=== PATIENT | male | born 1955 | race Caucasian/White ===

== ENCOUNTER 2019-02-22 14:48 | Inpatient (IN) | payer MEDICAID, MEDICARE, OTHER ==
[~2019-02-22] VITALS: Ht 185.4 cm; Wt 83.0 kg
[~2019-02-22 14:48] MED LIST: AMLO-511 PO; GEMF600T89 PO; LISI-661 PO; METF-960 PO; OMEP20 PO
[2019-02-22 16:15] LABS: BASOPHILS % (AUTO) 0.8 % (0.0-2.0); EOSINOPHILS % (AUTO) 0.2 % (1.0-6.0); HEMATOCRIT 41.4 % (41-53); HEMOGLOBIN 14.2 g/dL (13.5-17.5); LYMPHOCYTES # (AUTO) 0.9 K/uL (1.0-4.8); LYMPHOCYTES % (AUTO) 19.5 % (22.0-44.0); MEAN CORPUSCULAR HEMOGLOBIN 33.4 pg (26.0-34.0); MEAN CORPUSCULAR HGB CONC 34.3 G/dL (31.0-37.0); MEAN CORPUSCULAR VOLUME 97 fL (80-100); MONOCYTES # (AUTO) 0.7 K/uL (0.1-1.0); MONOCYTES % (AUTO) 15.6 % (2.0-9.0); NEUTROPHILS % (AUTO) 63.9 % (40.0-70.0); RED BLOOD CELL COUNT(AUTO) 4.25 MIL/uL (4.50-5.90); RED CELL DISTRIBUTION WIDTH 15.1 % (11.5-14.5)
[2019-02-22] MEDS ORDERED: ONDANSETRON HCL 4 MG/2 ML VIAL IVP ONE ×2 (16:15→22:30)
[2019-02-22] MEDS ORDERED: SODIUM CHLORIDE 0.9% 1,000 ML IV ONE ×2 (16:15→20:30)
[2019-02-22] MEDS ORDERED: MORPHINE SULFATE 4 MG/ML SYRINGE IVP ONE ×3 (16:15→22:30)
[2019-02-22 16:44] LABS: ANION GAP 17 mmol/L (8-16); CALCIUM, TOTAL 9.1 mg/dL (8.8-10.5); CARBON DIOXIDE 28 mmol/L (22-29); CHLORIDE 88 mmol/L (98-107); CREATININE 1.11 mg/dL (0.60-1.30); GLOMERULAR FILTR. RATE CALC > 60 mL/min (>60); GLUCOSE,RANDOM 296 mg/dL (70-110); POTASSIUM 3.6 mmol/L (3.5-5.1); SODIUM SERUM 133 mmol/L (136-145); UREA NITROGEN, BLOOD 20 mg/dL (7-18)
[2019-02-22 16:50] LABS: ALANINE AMINOTRANSFERASE 161 U/L (12-78); ALBUMIN 4.4 g/dL (3.4-5.0); ALKALINE PHOSPHATASE 129 U/L (46-116); ASPARTATE AMINOTRANSFERASE 337 U/L (15-37); BILIRUBIN,TOTAL 1.3 mg/dL (0.1-1.0); LIPASE 1689 U/L (73-393); TOTAL PROTEIN, SERUM 8.5 g/dL (6.4-8.2)
[2019-02-22 16:59] LABS: GLUCOSE,POINT OF CARE 320 MG/DL (70-110)
[2019-02-22 17:07] LABS: PLATELET COUNT (AUTO) 91 K/uL (150-450)
[2019-02-22] MEDS ORDERED: GADOBUTROL 1 MMOL/ML 10 ML VIAL IVP ONE (18:59)
[2019-02-22] MEDS ORDERED: PB/HYOSCY/ATR/SCOP/LIDO/MAALOX 55 ML BOTTLE PO ONE (22:30)
[2019-02-22] MEDS ORDERED: LORazepam 2 MG/ML VIAL IVP ONE (22:45)
[2019-02-22] MEDS ORDERED: ALBUTEROL SULFATE 2.5 MG/0.5 ML NEB SOLUTION NEB PRN (23:00)
[2019-02-22] MEDS ORDERED: ZOLPIDEM TARTRATE 5 MG TABLET PO PRN (23:00)
[2019-02-22] MEDS ORDERED: MAGNESIUM HYDROXIDE SUSPENSION 30 ML UDCUP PO PRN (23:00)
[2019-02-22] MEDS ORDERED: DEXTROSE 50%-WATER 25 GM/50 ML SYRINGE IVP PRN (23:00)
[2019-02-22] MEDS ORDERED: BISACODYL 10 MG RECTAL RECTAL SUPPOSITORY PR PRN (23:00)
[2019-02-22] MEDS ORDERED: IPRATROPIUM BROMIDE 0.5 MG/2.5 ML NEB SOLUTION NEB PRN (23:00)
[2019-02-22] MEDS ORDERED: CloNIDine HCL 0.1 MG TABLET PO PRN (23:00)
[2019-02-22 23:35] LABS: GLUCOSE,POINT OF CARE 227 MG/DL (70-110)
[2019-02-22] MEDS ORDERED: METOCLOPRAMIDE HCL 5 MG/ML 2 ML VIAL IVP ONE (23:45)
[2019-02-23] VITALS (7 sets, daily range): BP systolic 130–170; BP diastolic 87–114
[2019-02-23] MEDS: MORPHINE SULFATE 2 MG/ML SYRINGE IVP PRN ×4 (02:36→17:46)
[2019-02-23] MEDS: OxyCODONE HCL/ACETAMINOPHEN 5-325 MG TABLET PO PRN ×3 (04:48→22:20)
[2019-02-23] MEDS ORDERED: DEXTROSE 5%-0.45% SODIUM CHL 1,000 ML IV SCH (05:30)
[2019-02-23] MEDS: INSULIN LISPRO 100 UNITS/ML SQ PRN ×4 (05:34→19:58)
[2019-02-23 05:40] LABS: GLUCOMETER DEV NAME(LOC) 5N.1; GLUCOSE,POINT OF CARE 237 MG/DL (70-110)
[2019-02-23] MEDS ORDERED: MAGNESIUM SULFATE 2 GM, MVI, ADULT NO.1 WITH VIT K 10 ML, THIAMINE HCL 100 MG, FOLIC AC... IV ONE ×5 (06:00)
[2019-02-23 06:17] LABS: BASOPHILS % (AUTO) 0.2 % (0.0-2.0); EOSINOPHILS % (AUTO) 0 % (1.0-6.0); HEMATOCRIT 35.1 % (41-53); HEMOGLOBIN 12.3 g/dL (13.5-17.5); LYMPHOCYTES # (AUTO) 0.5 K/uL (1.0-4.8); LYMPHOCYTES % (AUTO) 10.3 % (22.0-44.0); MEAN CORPUSCULAR HEMOGLOBIN 33.9 pg (26.0-34.0); MEAN CORPUSCULAR HGB CONC 34.9 G/dL (31.0-37.0); MEAN CORPUSCULAR VOLUME 97 fL (80-100); MONOCYTES # (AUTO) 0.8 K/uL (0.1-1.0); MONOCYTES % (AUTO) 15.8 % (2.0-9.0); NEUTROPHILS # (AUTO) 3.8 K/uL (1.8-7.7); NEUTROPHILS % (AUTO) 73.7 % (40.0-70.0); PLATELET COUNT (AUTO) 77 K/uL (150-450); RED BLOOD CELL COUNT(AUTO) 3.62 MIL/uL (4.50-5.90); RED CELL DISTRIBUTION WIDTH 15.2 % (11.5-14.5)
[2019-02-23] MEDS: GEMFIBROZIL 600 MG TABLET PO SCH ×2 (06:22→17:45)
[2019-02-23 07:31] LABS: ALANINE AMINOTRANSFERASE 120 U/L (12-78); ALBUMIN 3.6 g/dL (3.4-5.0); ALKALINE PHOSPHATASE 106 U/L (46-116); AMYLASE 225 U/L (25-115); ANION GAP 15 mmol/L (8-16); ASPARTATE AMINOTRANSFERASE 231 U/L (15-37); BILIRUBIN,TOTAL 1.3 mg/dL (0.1-1.0); CALCIUM, TOTAL 8.2 mg/dL (8.8-10.5); CARBON DIOXIDE 27 mmol/L (22-29); CHLORIDE 93 mmol/L (98-107); CREATININE 0.82 mg/dL (0.60-1.30); GLOMERULAR FILTR. RATE CALC > 60 mL/min (>60); GLUCOSE,RANDOM 238 mg/dL (70-110); PHOSPHORUS 3.3 mg/dL (2.5-4.9); POTASSIUM 3.5 mmol/L (3.5-5.1); SODIUM SERUM 135 mmol/L (136-145); UREA NITROGEN, BLOOD 17 mg/dL (7-18)
[2019-02-23 07:41] LABS: LIPASE 3356 U/L (73-393)
[2019-02-23] MEDS: ONDANSETRON HCL 4 MG/2 ML VIAL IVP PRN ×2 (08:33→23:19)
[2019-02-23] MEDS: LORazepam 1 MG TABLET PO SCH ×3 (09:32→19:57)
[2019-02-23] MEDS: LISINOPRIL 10 MG TABLET PO SCH (09:33)
[2019-02-23] MEDS: FOLIC ACID 1 MG TABLET PO SCH (09:33)
[2019-02-23] MEDS: HEPARIN SODIUM,PORCINE 5,000 UNITS/ML VIAL SQ SCH ×2 (09:33→19:57)
[2019-02-23] MEDS: FAMOTIDINE 20 MG TABLET PO SCH ×2 (09:33→19:57)
[2019-02-23] MEDS: THIAMINE HCL 100 MG TABLET PO SCH (09:33)
[2019-02-23 12:07] LABS: GLUCOMETER DEV NAME(LOC) 5N.2; GLUCOSE,POINT OF CARE 188 MG/DL (70-110)
[2019-02-23 18:40] LABS: GLUCOMETER DEV NAME(LOC) 5N.1; GLUCOSE,POINT OF CARE 191 MG/DL (70-110)
[2019-02-23] MEDS: DEXTROSE 5%-0.45% SODIUM CHL 1,000 ML IV SCH (19:22)
[2019-02-23] MEDS: AmLODIPine BESYLATE 5 MG TABLET PO SCH (19:57)
[2019-02-23 20:57] LABS: MAGNESIUM 1.5 mg/dL (1.80-2.40)
[2019-02-23] MEDS ORDERED: MAGNESIUM SULFATE 4 GM/WATER 100 ML IV PRN (22:00)
[2019-02-23] MEDS ORDERED: MAGNESIUM OXIDE 400 MG TABLET PO PRN (22:00)
[2019-02-23] MEDS ORDERED: MAGNESIUM SULFATE 2 GM/WATER 50 ML IV PRN (22:00)
[2019-02-23 22:06] LABS: ALBUMIN 3.7 g/dL (3.4-5.0)
[2019-02-23] MEDS: ACETAMINOPHEN 325 MG TABLET PO PRN (23:32)
[2019-02-24 00:20] LABS: GLUCOMETER DEV NAME(LOC) 5N.2; GLUCOSE,POINT OF CARE 203 MG/DL (70-110)
[2019-02-24 05:04] VITALS: BP 116/88
[2019-02-24] MEDS: MORPHINE SULFATE 2 MG/ML SYRINGE IVP PRN ×2 (05:57→20:17)
[2019-02-24] MEDS: GEMFIBROZIL 600 MG TABLET PO SCH ×2 (05:58→17:38)
[2019-02-24] MEDS: INSULIN LISPRO 100 UNITS/ML SQ PRN ×4 (05:58→20:16)
[2019-02-24] MEDS: DEXTROSE 5%-0.45% SODIUM CHL 1,000 ML IV SCH ×2 (06:56→18:13)
[2019-02-24 07:15] LABS: CHOL/HDL RATIO 5.9 (4.2-7.3); MAGNESIUM 2.2 mg/dL (1.80-2.40)
[2019-02-24 07:59] VITALS: BP 94/66
[2019-02-24] MEDS: LORazepam 1 MG TABLET PO SCH ×3 (08:51→20:15)
[2019-02-24] MEDS: FAMOTIDINE 20 MG TABLET PO SCH ×2 (08:51→20:16)
[2019-02-24] MEDS: HEPARIN SODIUM,PORCINE 5,000 UNITS/ML VIAL SQ SCH ×2 (08:51→20:16)
[2019-02-24] MEDS: FOLIC ACID 1 MG TABLET PO SCH (08:51)
[2019-02-24] MEDS: THIAMINE HCL 100 MG TABLET PO SCH (08:51)
[2019-02-24] MEDS: LISINOPRIL 10 MG TABLET PO SCH (08:51)
[2019-02-24 11:21] VITALS: BP 101/59
[2019-02-24 11:30] LABS: GLUCOMETER DEV NAME(LOC) 5N.1; GLUCOSE,POINT OF CARE 202 MG/DL (70-110)
[2019-02-24 11:30] LABS: GLUCOMETER DEV NAME(LOC) 5N.2; GLUCOSE,POINT OF CARE 274 MG/DL (70-110)
[2019-02-24 15:19] VITALS: BP 94/67
[2019-02-24] MEDS: ACETAMINOPHEN 325 MG TABLET PO PRN (15:38)
[2019-02-24 17:13] LABS: CALCIUM, TOTAL 8.8 mg/dL (8.8-10.5); CREATININE 1.52 mg/dL (0.60-1.30); POTASSIUM 3.3 mmol/L (3.5-5.1)
[2019-02-24 17:21] LABS: ALBUMIN 3.5 g/dL (3.4-5.0); BILIRUBIN,TOTAL 1.9 mg/dL (0.1-1.0); TOTAL PROTEIN, SERUM 7.7 g/dL (6.4-8.2)
[2019-02-24] MEDS ORDERED: POTASSIUM CHLORIDE 10% 40 MEQ/30 ML LIQUID UDCUP PO ONE (17:45)
[2019-02-24 18:10] LABS: GLUCOMETER DEV NAME(LOC) 5N.2; GLUCOSE,POINT OF CARE 174 MG/DL (70-110)
[2019-02-24 19:33] VITALS: BP 113/69
[2019-02-24] MEDS: AmLODIPine BESYLATE 5 MG TABLET PO SCH (20:15)
[2019-02-24 21:49] LABS: GLUCOMETER DEV NAME(LOC) 5N.2; GLUCOSE,POINT OF CARE 182 MG/DL (70-110)
[2019-02-24] MEDS: OxyCODONE HCL/ACETAMINOPHEN 5-325 MG TABLET PO PRN (23:58)
[2019-02-25 00:03] VITALS: BP 115/67
[2019-02-25 04:03] VITALS: BP 111/70
[2019-02-25] MEDS: DEXTROSE 5%-0.45% SODIUM CHL 1,000 ML IV SCH ×2 (05:25→08:12)
[2019-02-25] MEDS: GEMFIBROZIL 600 MG TABLET PO SCH (05:25)
[2019-02-25] MEDS: INSULIN LISPRO 100 UNITS/ML SQ PRN ×2 (05:44→11:44)
[2019-02-25] MEDS: MORPHINE SULFATE 2 MG/ML SYRINGE IVP PRN (06:00)
[2019-02-25 06:25] LABS: GLUCOMETER DEV NAME(LOC) 5N.2; GLUCOSE,POINT OF CARE 269 MG/DL (70-110)
[2019-02-25 07:20] VITALS: BP 107/67
[2019-02-25] MEDS: LISINOPRIL 10 MG TABLET PO SCH (08:11)
[2019-02-25] MEDS: HEPARIN SODIUM,PORCINE 5,000 UNITS/ML VIAL SQ SCH (08:12)
[2019-02-25] MEDS: FAMOTIDINE 20 MG TABLET PO SCH (08:12)
[2019-02-25] MEDS: FOLIC ACID 1 MG TABLET PO SCH (08:12)
[2019-02-25] MEDS: THIAMINE HCL 100 MG TABLET PO SCH (08:12)
[2019-02-25] MEDS: LORazepam 1 MG TABLET PO SCH (08:12)
[2019-02-25 08:57] LABS: BASOPHILS % (AUTO) 0.6 % (0.0-2.0); EOSINOPHILS % (AUTO) 1.6 % (1.0-6.0); HEMATOCRIT 35.8 % (41-53); HEMOGLOBIN 12.2 g/dL (13.5-17.5); LYMPHOCYTES # (AUTO) 0.9 K/uL (1.0-4.8); LYMPHOCYTES % (AUTO) 15.2 % (22.0-44.0); MEAN CORPUSCULAR HEMOGLOBIN 33.6 pg (26.0-34.0); MEAN CORPUSCULAR HGB CONC 34.2 G/dL (31.0-37.0); MEAN CORPUSCULAR VOLUME 98 fL (80-100); MONOCYTES # (AUTO) 0.9 K/uL (0.1-1.0); MONOCYTES % (AUTO) 15.1 % (2.0-9.0); NEUTROPHILS % (AUTO) 67.5 % (40.0-70.0); PLATELET COUNT (AUTO) 96 K/uL (150-450); RED BLOOD CELL COUNT(AUTO) 3.64 MIL/uL (4.50-5.90); RED CELL DISTRIBUTION WIDTH 15.4 % (11.5-14.5)
[2019-02-25 09:09] LABS: ALANINE AMINOTRANSFERASE 77 U/L (12-78); ALBUMIN 2.9 g/dL (3.4-5.0); ALKALINE PHOSPHATASE 111 U/L (46-116); ANION GAP 9 mmol/L (8-16); ASPARTATE AMINOTRANSFERASE 120 U/L (15-37); BILIRUBIN,TOTAL 1.7 mg/dL (0.1-1.0); CALCIUM, TOTAL 8.4 mg/dL (8.8-10.5); CARBON DIOXIDE 28 mmol/L (22-29); CHLORIDE 95 mmol/L (98-107); CREATININE 1.17 mg/dL (0.60-1.30); GLOMERULAR FILTR. RATE CALC > 60 mL/min (>60); GLUCOSE,RANDOM 78 mg/dL (70-110); SODIUM SERUM 132 mmol/L (136-145); TOTAL PROTEIN, SERUM 6.8 g/dL (6.4-8.2); UREA NITROGEN, BLOOD 20 mg/dL (7-18)
[2019-02-25] MEDS ORDERED: POTASSIUM CHLORIDE 20 MEQ ER TABLET PO PRN (11:00)
[2019-02-25] MEDS ORDERED: POTASSIUM CHL 10 MEQ/WATER 50 ML IV PRN (11:00)
[2019-02-25 12:15] VITALS: BP 100/71
[2019-02-25 12:28] LABS: GLUCOMETER DEV NAME(LOC) 5N.2; GLUCOSE,POINT OF CARE 165 MG/DL (70-110)
== END 2019-02-25 15:00 | disposition home or self-care (01) | DRG 439 ==
LOC: EMS 14:51 → 5N 22:47
PROVIDERS: ADMIT Internal Medicine; ATTEND Internal Medicine
DX: K85.20 Alcohol induced acute pancreatitis without necrosis or infection (principal); E87.1 Hypo-osmolality and hyponatremia; E44.0 Moderate protein-calorie malnutrition; I10 Essential (primary) hypertension; E11.65 Type 2 diabetes mellitus with hyperglycemia; K70.10 Alcoholic hepatitis without ascites; D69.59 Other secondary thrombocytopenia; E78.5 Hyperlipidemia, unspecified; K21.9 Gastro-esophageal reflux disease without esophagitis; E87.6 Hypokalemia; E83.42 Hypomagnesemia; R74.0 Nonspecific elevation of levels of transaminase and lactic acid dehydrogenase [LDH]; B19.20 Unspecified viral hepatitis C without hepatic coma; E78.00 Pure hypercholesterolemia, unspecified; K86.1 Other chronic pancreatitis; K85.90 Acute pancreatitis without necrosis or infection, unspecified; Z91.19 Patient's noncompliance with other medical treatment and regimen; Z68.24 Body mass index [BMI] 24.0-24.9, adult
CPT/HCPCS: 74183; 76705; 80074; 83735; 84100; 96374; 96375; 96376; A9585; G0378; G0480; J1644; J2060; J2270; J2405; J2765; J3411; J3475; J3490; J7030

== ENCOUNTER 2019-02-25 21:31 | Emergency (ER) | payer OTHER ==
[~2019-02-25] VITALS: Ht 182.9 cm; Wt 86.4 kg
[2019-02-25 21:49] LABS: GLUCOSE,POINT OF CARE 340 MG/DL (70-110)
[2019-02-25] MEDS ORDERED: SODIUM CHLORIDE 0.9% 1,000 ML IV ONE (22:00)
[2019-02-25 22:22] LABS: BASOPHILS % (AUTO) 0.5 % (0.0-2.0); HEMATOCRIT 35.4 % (41-53); HEMOGLOBIN 12.2 g/dL (13.5-17.5); LYMPHOCYTES # (AUTO) 0.6 K/uL (1.0-4.8); LYMPHOCYTES % (AUTO) 11.7 % (22.0-44.0); MEAN CORPUSCULAR HEMOGLOBIN 34.4 pg (26.0-34.0); MEAN CORPUSCULAR HGB CONC 34.4 G/dL (31.0-37.0); MEAN CORPUSCULAR VOLUME 100 fL (80-100); MONOCYTES # (AUTO) 0.9 K/uL (0.1-1.0); MONOCYTES % (AUTO) 17.1 % (2.0-9.0); NEUTROPHILS # (AUTO) 3.6 K/uL (1.8-7.7); NEUTROPHILS % (AUTO) 69.7 % (40.0-70.0); PLATELET COUNT (AUTO) 139 K/uL (150-450); RED BLOOD CELL COUNT(AUTO) 3.54 MIL/uL (4.50-5.90); RED CELL DISTRIBUTION WIDTH 15.9 % (11.5-14.5)
[2019-02-25 22:50] LABS: ANION GAP 16 mmol/L (8-16); CALCIUM, TOTAL 9.2 mg/dL (8.8-10.5); CARBON DIOXIDE 24 mmol/L (22-29); CHLORIDE 93 mmol/L (98-107); CREATININE 1.06 mg/dL (0.60-1.30); GLOMERULAR FILTR. RATE CALC > 60 mL/min (>60); GLUCOSE,RANDOM 315 mg/dL (70-110); POTASSIUM 3.8 mmol/L (3.5-5.1); SODIUM SERUM 133 mmol/L (136-145); UREA NITROGEN, BLOOD 23 mg/dL (7-18)
[2019-02-25 22:55] LABS: ALANINE AMINOTRANSFERASE 90 U/L (12-78); ALBUMIN 3.2 g/dL (3.4-5.0); ALKALINE PHOSPHATASE 137 U/L (46-116); ASPARTATE AMINOTRANSFERASE 149 U/L (15-37); BILIRUBIN,TOTAL 1.6 mg/dL (0.1-1.0); TOTAL PROTEIN, SERUM 7.5 g/dL (6.4-8.2)
[2019-02-26] MEDS ORDERED: SODIUM CHLORIDE 0.9% 1,000 ML IV ONE (00:15)
[2019-02-26] MEDS ORDERED: LORazepam 2 MG/ML VIAL IVP ONE (00:15)
[2019-02-26 00:24] LABS: GLUCOSE,POINT OF CARE 334 MG/DL (70-110)
[2019-02-26] MEDS ORDERED: IBUPROFEN 800 MG TABLET PO ONE (00:30)
[2019-02-26] MEDS ORDERED: INSULIN REGULAR, HUMAN 100 UNITS/ML IVP ONE (00:30)
[2019-02-26 01:24] LABS: AMPHET/METH SCREEN,URINE NEGATIVE (NEGATIVE); BARBITURATE SCREEN, URINE NEGATIVE (NEGATIVE); BENZODIAZEPINES SCREEN,URINE NEGATIVE (NEGATIVE); CANNABINOID SCREEN,URINE NEGATIVE (NEGATIVE); COCAINE SCREEN,URINE NEGATIVE (NEGATIVE); METHADONE SCREEN, URINE NEGATIVE (NEGATIVE); OPIATE SCREEN,URINE POSITIVE (NEGATIVE); PHENCYCLIDINE SCREEN,URINE NEGATIVE (NEGATIVE)
[2019-02-26 01:44] LABS: GLUCOSE,POINT OF CARE 209 MG/DL (70-110)
[2019-02-26 02:08] VITALS: BP 124/84
== END 2019-02-26 02:23 | disposition home or self-care (01) ==
LOC: EMS 21:32
DX: E11.65 Type 2 diabetes mellitus with hyperglycemia (principal); R11.2 Nausea with vomiting, unspecified; F10.20 Alcohol dependence, uncomplicated; F41.9 Anxiety disorder, unspecified; K21.9 Gastro-esophageal reflux disease without esophagitis; I10 Essential (primary) hypertension; E78.00 Pure hypercholesterolemia, unspecified; Z79.84 Long term (current) use of oral hypoglycemic drugs; Y90.0 Blood alcohol level of less than 20 mg/100 ml
CPT/HCPCS: 36415; 80053; 80307; 82962; 83690; 85025; 96361; 96374; 96375; 99285; G0480; J1815; J2060; J7030

== ENCOUNTER 2019-09-01 10:03 | Emergency (ER) | payer MEDICARE, OTHER ==
[~2019-09-01] VITALS: Ht 182.9 cm; Wt 68.2 kg
[~2019-09-01 10:03] MED LIST changes: -AMLO-511 PO; -GEMF600T89 PO; -LISI-661 PO
[2019-09-01] MEDS ORDERED: METF-446 PO (10:31)
[2019-09-01] MEDS ORDERED: ATOR80TA PO (10:31)
[2019-09-01] MEDS ORDERED: INSLAN SQ (10:31)
[2019-09-01] MEDS ORDERED: TICA90TA PO (10:31)
[2019-09-01] MEDS ORDERED: METO-391 PO (10:31)
[2019-09-01] MEDS ORDERED: GABA800T9 PO (10:31)
[2019-09-01] MEDS ORDERED: TAMS-1 PO (10:31)
[2019-09-01] MEDS ORDERED: LISI-622 PO (10:31)
[2019-09-01] MEDS ORDERED: BUSP10TA3 PO (10:31)
[2019-09-01] MEDS ORDERED: AMLO5TAB66 PO (10:31)
[2019-09-01 10:53] LABS: BASOPHILS % (AUTO) 0.6 % (0.0-2.0); EOSINOPHILS % (AUTO) 0.5 % (1.0-6.0); HEMATOCRIT 29.3 % (41-53); HEMOGLOBIN 9.9 g/dL (13.5-17.5); MEAN CORPUSCULAR HEMOGLOBIN 34.9 pg (26.0-34.0); MEAN CORPUSCULAR HGB CONC 33.8 G/dL (31.0-37.0); MEAN CORPUSCULAR VOLUME 103 fL (80-100); MONOCYTES # (AUTO) 0.9 K/uL (0.1-1.0); MONOCYTES % (AUTO) 17.4 % (2.0-9.0); NEUTROPHILS # (AUTO) 3.3 K/uL (1.8-7.7); NEUTROPHILS % (AUTO) 62.5 % (40.0-70.0); PLATELET COUNT (AUTO) 230 K/uL (150-450); RED BLOOD CELL COUNT(AUTO) 2.84 MIL/uL (4.50-5.90); RED CELL DISTRIBUTION WIDTH 16.7 % (11.5-14.5)
[2019-09-01 11:06] LABS: ANION GAP 8 mmol/L (8-16); CALCIUM, TOTAL 7.9 mg/dL (8.8-10.5); CARBON DIOXIDE 28 mmol/L (22-29); CHLORIDE 99 mmol/L (98-107); CREATININE 1.25 mg/dL (0.60-1.30); GLOMERULAR FILTR. RATE CALC 58 mL/min (>60); GLUCOSE,RANDOM 223 mg/dL (70-110); POTASSIUM 3.4 mmol/L (3.5-5.1); SODIUM SERUM 135 mmol/L (136-145); UREA NITROGEN, BLOOD 16 mg/dL (7-18)
[2019-09-01 11:12] LABS: ALANINE AMINOTRANSFERASE 54 U/L (12-78); ALBUMIN 2.5 g/dL (3.4-5.0); ALKALINE PHOSPHATASE 334 U/L (46-116); ASPARTATE AMINOTRANSFERASE 154 U/L (15-37); BILIRUBIN,TOTAL 2.4 mg/dL (0.1-1.0); TOTAL PROTEIN, SERUM 6.1 g/dL (6.4-8.2)
[2019-09-01 11:19] LABS: B-TYPE NATRIURETIC PEPTIDE 58 pg/mL (0-100)
[2019-09-01] MEDS ORDERED: SODIUM CHLORIDE 0.9% 1,000 ML IV ONE (12:00)
[2019-09-01 12:25] LABS: AMPHET/METH SCREEN,URINE NEGATIVE (NEGATIVE); BARBITURATE SCREEN, URINE NEGATIVE (NEGATIVE); BENZODIAZEPINES SCREEN,URINE POSITIVE (NEGATIVE); CANNABINOID SCREEN,URINE NEGATIVE (NEGATIVE); COCAINE SCREEN,URINE NEGATIVE (NEGATIVE); METHADONE SCREEN, URINE NEGATIVE (NEGATIVE); OPIATE SCREEN,URINE NEGATIVE (NEGATIVE)
[2019-09-01 12:26] LABS: PHENCYCLIDINE SCREEN,URINE NEGATIVE (NEGATIVE)
[2019-09-01 12:30] LABS: APPEARANCE,URINE CLOUDY (CLEAR); GLUCOSE, URINE (UA) 500 mg/dL (NEGATIVE); KETONES,URINE NEGATIVE (NEGATIVE); LEUKOCYTE ESTERASE ,URINE MODERATE (NEGATIVE); NITRATE,URINE NEGATIVE (NEGATIVE); OCCULT BLOOD,URINE NEGATIVE (NEGATIVE); PH,URINE 5.5 (5.0-8.0); PROTEIN,URINE NEGATIVE (NEGATIVE)
[2019-09-01 12:50] LABS: BILIRUBIN,URINE PRELIM. POSITIVE (NEGATIVE)
[2019-09-01 12:51] LABS: BACTERIA,URINE Many /HPF (None Seen); RBC,URINE 0-2 /HPF (0-2)
[2019-09-01] MEDS ORDERED: CEPHALEXIN MONOHYDRATE 500 MG CAPSULE PO ONE (13:00)
[2019-09-01 13:45] LABS: GLUCOSE,POINT OF CARE 261 MG/DL (70-110)
[2019-09-01 14:25] VITALS: BP 105/69
== END 2019-09-01 14:38 | disposition home or self-care (01) ==
LOC: EMS 10:05
DX: N39.0 Urinary tract infection, site not specified (principal); R53.1 Weakness; I95.9 Hypotension, unspecified; R42 Dizziness and giddiness; E11.9 Type 2 diabetes mellitus without complications; E78.00 Pure hypercholesterolemia, unspecified; I10 Essential (primary) hypertension; K21.9 Gastro-esophageal reflux disease without esophagitis; F10.20 Alcohol dependence, uncomplicated; Z98.890 Other specified postprocedural states; Z79.899 Other long term (current) drug therapy; Z79.4 Long term (current) use of insulin
CPT/HCPCS: 36415; 70450; 80053; 80307; 81001; 82140; 82962; 83880; 84484; 85025; 87077; 87086; 87186; 93005; 99285; G0480; J7030

== ENCOUNTER 2019-09-03 21:20 | Inpatient (IN) | payer MEDICARE, MEDICAID ==
[~2019-09-03] VITALS: Ht 182.9 cm; Wt 77.3 kg
[~2019-09-03 21:20] MED LIST changes: +AMLO5TAB66 PO; +ATOR80TA PO; +BUSP10TA3 PO; +GABA800T9 PO; +INSLAN SQ; +LISI-622 PO; +METF-446 PO; +METO-391 PO; +TAMS-1 PO; +TICA90TA PO
[2019-09-03 21:51] LABS: GLUCOSE,POINT OF CARE 110 MG/DL (70-110)
[2019-09-03 23:11] LABS: BASOPHILS % (AUTO) 0.5 % (0.0-2.0); EOSINOPHILS % (AUTO) 0.3 % (1.0-6.0); HEMATOCRIT 30.5 % (41-53); HEMOGLOBIN 10.3 g/dL (13.5-17.5); LYMPHOCYTES # (AUTO) 1.1 K/uL (1.0-4.8); LYMPHOCYTES % (AUTO) 19.6 % (22.0-44.0); MEAN CORPUSCULAR HEMOGLOBIN 35.1 pg (26.0-34.0); MEAN CORPUSCULAR HGB CONC 33.8 G/dL (31.0-37.0); MEAN CORPUSCULAR VOLUME 104 fL (80-100); MONOCYTES # (AUTO) 0.8 K/uL (0.1-1.0); MONOCYTES % (AUTO) 13.7 % (2.0-9.0); NEUTROPHILS # (AUTO) 3.7 K/uL (1.8-7.7); NEUTROPHILS % (AUTO) 65.9 % (40.0-70.0); PLATELET COUNT (AUTO) 273 K/uL (150-450); RED BLOOD CELL COUNT(AUTO) 2.94 MIL/uL (4.50-5.90); RED CELL DISTRIBUTION WIDTH 17.4 % (11.5-14.5)
[2019-09-03 23:19] LABS: ANION GAP 7 mmol/L (8-16); CALCIUM, TOTAL 8.2 mg/dL (8.8-10.5); CARBON DIOXIDE 27 mmol/L (22-29); CHLORIDE 104 mmol/L (98-107); CREATININE 0.71 mg/dL (0.60-1.30); GLOMERULAR FILTR. RATE CALC > 60 mL/min (>60); GLUCOSE,RANDOM 189 mg/dL (70-110); POTASSIUM 4.3 mmol/L (3.5-5.1); SODIUM SERUM 138 mmol/L (136-145); UREA NITROGEN, BLOOD 14 mg/dL (7-18)
[2019-09-03 23:22] LABS: INR 1.1 (0.9-1.1); PROTHROMBIN TIME 11.1 SEC (9.4-11.6)
[2019-09-03 23:25] LABS: ALANINE AMINOTRANSFERASE 49 U/L (12-78); ALBUMIN 2.4 g/dL (3.4-5.0); ALKALINE PHOSPHATASE 252 U/L (46-116); ASPARTATE AMINOTRANSFERASE 110 U/L (15-37); BILIRUBIN,TOTAL 1.5 mg/dL (0.1-1.0); LIPASE 36 U/L (73-393); TOTAL PROTEIN, SERUM 6.2 g/dL (6.4-8.2)
[2019-09-03 23:28] LABS: TROPONIN I < 0.02 ng/mL (0.00-0.05)
[2019-09-03 23:29] LABS: B-TYPE NATRIURETIC PEPTIDE 36 pg/mL (0-100)
[2019-09-03 23:42] LABS: LACTIC ACID 1.9 mmol/L (0.4-2.0)
[2019-09-03 23:45] LABS: AMMONIA < 10 umol/L (11-32)
[2019-09-03] MEDS ORDERED: ONDANSETRON HCL 4 MG/2 ML VIAL IVP PRN ×2 (23:45)
[2019-09-03] MEDS ORDERED: MAGNESIUM HYDROXIDE SUSPENSION 30 ML UDCUP PO PRN (23:45)
[2019-09-03] MEDS ORDERED: MORPHINE SULFATE 2 MG/ML SYRINGE IVP PRN (23:45)
[2019-09-03] MEDS ORDERED: BISACODYL 10 MG RECTAL RECTAL SUPPOSITORY PR PRN (23:45)
[2019-09-03] MEDS ORDERED: POTASSIUM CHLORIDE 20 MEQ ER TABLET PO PRN (23:45)
[2019-09-03] MEDS ORDERED: WATER IV ONE (23:45)
[2019-09-03] MEDS ORDERED: ACETAMINOPHEN 325 MG TABLET PO PRN ×2 (23:45)
[2019-09-03] MEDS ORDERED: MAGNESIUM SULFATE IV ONE (23:45)
[2019-09-03] MEDS ORDERED: MAGNESIUM SULFATE 4 GM/WATER 100 ML IV PRN (23:45)
[2019-09-03] MEDS ORDERED: ZOLPIDEM TARTRATE 5 MG TABLET PO PRN (23:45)
[2019-09-03] MEDS ORDERED: POTASSIUM CHL 10 MEQ/WATER 50 ML IV PRN (23:45)
[2019-09-03] MEDS ORDERED: HYDROCODONE/ACETAMINOPHEN 5-325 MG TABLET PO PRN (23:45)
[2019-09-03] MEDS ORDERED: LORazepam 2 MG/ML VIAL IM PRN (23:45)
[2019-09-03] MEDS ORDERED: MAGNESIUM SULFATE 2 GM/WATER 50 ML IV PRN (23:45)
[2019-09-03] MEDS ORDERED: DEXTROSE 5% IV ONE (23:45)
[2019-09-03] MEDS ORDERED: 0.9% SODIUM CHLORIDE 10 ML SYRINGE IVP PRN (23:45)
[2019-09-04 00:13] LABS: PHOSPHORUS 1.5 mg/dL (2.5-4.9)
[2019-09-04 01:00] VITALS: BP 121/80
[2019-09-04] MEDS ORDERED: MAGNESIUM SULFATE 2 GM, MVI, ADULT NO.1 WITH VIT K 10 ML, THIAMINE HCL 100 MG, FOLIC AC... IV ONE ×5 (02:00)
[2019-09-04 05:19] LABS: GLUCOMETER DEV NAME(LOC) 6N.1; GLUCOSE,POINT OF CARE 197 MG/DL (70-110)
[2019-09-04 06:17] LABS: GLUCOMETER DEV NAME(LOC) 6N.1; GLUCOSE,POINT OF CARE 166 MG/DL (70-110)
[2019-09-04 06:54] LABS: MAGNESIUM 1.7 mg/dL (1.80-2.40)
[2019-09-04] MEDS: LISINOPRIL 5 MG TABLET PO SCH (07:48)
[2019-09-04] MEDS: MAGNESIUM OXIDE 400 MG TABLET PO PRN ×3 (07:48→18:16)
[2019-09-04] MEDS: DOCUSATE SODIUM 100 MG CAPSULE PO SCH ×2 (07:48→20:26)
[2019-09-04] MEDS: AmLODIPine BESYLATE 5 MG TABLET PO SCH (07:48)
[2019-09-04] MEDS: POTASSIUM PHOS/SODIUM PHOS MIXTURE 1 POWDER PACKET PO SCH ×3 (07:49→20:24)
[2019-09-04] MEDS: ATORVASTATIN CALCIUM 40 MG TABLET PO SCH (07:49)
[2019-09-04] MEDS: METOPROLOL SUCCINATE 50 MG ER TABLET PO SCH (07:49)
[2019-09-04] MEDS: BusPIRone HCL 10 MG TABLET PO SCH ×3 (07:49→20:24)
[2019-09-04] MEDS: TICAGRELOR 90 MG TABLET PO SCH ×2 (07:50→20:24)
[2019-09-04 07:55] VITALS: BP 132/86
[2019-09-04] MEDS ORDERED: MetFORMIN HCL 500 MG TABLET PO SCH (08:00)
[2019-09-04] MEDS: MetFORMIN HCL 500 MG TABLET PO SCH ×2 (08:13→18:10)
[2019-09-04] MEDS: TAMSULOSIN HCL 0.4 MG CAPSULE PO SCH (08:13)
[2019-09-04] MEDS: PANTOPRAZOLE SODIUM 40 MG DR TABLET PO SCH (08:13)
[2019-09-04 11:44] VITALS: BP 122/85
[2019-09-04] MEDS ORDERED: DEXTROSE 50%-WATER 25 GM/50 ML SYRINGE IVP PRN (11:45)
[2019-09-04] MEDS ORDERED: INFLUENZA VIRUS VACCINE QVS 2019-20 (3YR+)/PF 60 MCG/0.5 ML SYRINGE IM ONE (12:15)
[2019-09-04] MEDS: INSULIN LISPRO 100 UNITS/ML SQ PRN ×2 (12:28→17:36)
[2019-09-04] MEDS ORDERED: ChlordiazePOXIDE HCL 25 MG CAPSULE PO PRN (12:30)
[2019-09-04 13:01] LABS: GLUCOMETER DEV NAME(LOC) 6N.1; GLUCOSE,POINT OF CARE 241 MG/DL (70-110)
[2019-09-04 13:34] LABS: FREE T4 (FREE THYROXINE) 1.22 ng/dL (0.76-1.46); THYROID STIMULATING HORMONE 1.94 uIU/mL (0.36-3.74)
[2019-09-04] MEDS ORDERED: LOPERAMIDE HCL 2 MG CAPSULE PO PRN (14:00)
[2019-09-04] MEDS ORDERED: ATOR40TA28 PO (14:04)
[2019-09-04 15:28] VITALS: BP 104/69
[2019-09-04 16:06] LABS: ALBUMIN 2.5 g/dL (3.4-5.0)
[2019-09-04 17:45] LABS: GLUCOMETER DEV NAME(LOC) 6N.1; GLUCOSE,POINT OF CARE 178 MG/DL (70-110)
[2019-09-04 20:11] VITALS: BP 137/82
[2019-09-04] MEDS: INSULIN GLARGINE,HUM.REC.ANLOG 100 UNITS/ML SQ SCH (21:19)
[2019-09-05 00:06] VITALS: BP 117/78
[2019-09-05 00:28] LABS: GLUCOMETER DEV NAME(LOC) 6N.1; GLUCOSE,POINT OF CARE 169 MG/DL (70-110)
[2019-09-05 04:42] VITALS: BP 119/80
[2019-09-05 05:42] LABS: BASOPHILS % (AUTO) 0.6 % (0.0-2.0); EOSINOPHILS % (AUTO) 0.3 % (1.0-6.0); HEMATOCRIT 28.3 % (41-53); HEMOGLOBIN 9.5 g/dL (13.5-17.5); LYMPHOCYTES # (AUTO) 1.1 K/uL (1.0-4.8); LYMPHOCYTES % (AUTO) 20.2 % (22.0-44.0); MEAN CORPUSCULAR HEMOGLOBIN 34.7 pg (26.0-34.0); MEAN CORPUSCULAR HGB CONC 33.6 G/dL (31.0-37.0); MEAN CORPUSCULAR VOLUME 103 fL (80-100); MONOCYTES # (AUTO) 0.7 K/uL (0.1-1.0); MONOCYTES % (AUTO) 13.7 % (2.0-9.0); NEUTROPHILS # (AUTO) 3.4 K/uL (1.8-7.7); NEUTROPHILS % (AUTO) 65.2 % (40.0-70.0); PLATELET COUNT (AUTO) 232 K/uL (150-450); RED BLOOD CELL COUNT(AUTO) 2.74 MIL/uL (4.50-5.90); RED CELL DISTRIBUTION WIDTH 17.3 % (11.5-14.5)
[2019-09-05 06:34] LABS: GLUCOMETER DEV NAME(LOC) 6N.1; GLUCOSE,POINT OF CARE 137 MG/DL (70-110)
[2019-09-05 07:38] LABS: ANION GAP 8 mmol/L (8-16); CALCIUM, TOTAL 7.7 mg/dL (8.8-10.5); CARBON DIOXIDE 25 mmol/L (22-29); CHLORIDE 105 mmol/L (98-107); GLOMERULAR FILTR. RATE CALC > 60 mL/min (>60); GLUCOSE,RANDOM 162 mg/dL (70-110); POTASSIUM 4.3 mmol/L (3.5-5.1); SODIUM SERUM 138 mmol/L (136-145); UREA NITROGEN, BLOOD 10 mg/dL (7-18)
[2019-09-05 07:45] LABS: PHOSPHORUS 1.3 mg/dL (2.5-4.9)
[2019-09-05 07:57] VITALS: BP 136/84
[2019-09-05] MEDS: MetFORMIN HCL 500 MG TABLET PO SCH ×2 (08:25→17:39)
[2019-09-05] MEDS: ATORVASTATIN CALCIUM 40 MG TABLET PO SCH (08:25)
[2019-09-05] MEDS: AmLODIPine BESYLATE 5 MG TABLET PO SCH (08:25)
[2019-09-05] MEDS: THIAMINE HCL 100 MG TABLET PO SCH (08:25)
[2019-09-05] MEDS: METOPROLOL SUCCINATE 50 MG ER TABLET PO SCH (08:25)
[2019-09-05] MEDS: PANTOPRAZOLE SODIUM 40 MG DR TABLET PO SCH (08:25)
[2019-09-05] MEDS: TAMSULOSIN HCL 0.4 MG CAPSULE PO SCH (08:25)
[2019-09-05] MEDS: FOLIC ACID 1 MG TABLET PO SCH (08:25)
[2019-09-05] MEDS: BusPIRone HCL 10 MG TABLET PO SCH ×3 (08:25→20:26)
[2019-09-05] MEDS: MULTIVITAMINS WITH MINERALS, THERAPEUTIC TABLET PO SCH (08:25)
[2019-09-05] MEDS: LISINOPRIL 5 MG TABLET PO SCH (08:25)
[2019-09-05] MEDS: TICAGRELOR 90 MG TABLET PO SCH ×2 (08:25→20:26)
[2019-09-05] MEDS: DOCUSATE SODIUM 100 MG CAPSULE PO SCH ×2 (08:28→21:00)
[2019-09-05] MEDS: POTASSIUM PHOS/SODIUM PHOS MIXTURE 1 POWDER PACKET PO SCH ×3 (09:42→20:26)
[2019-09-05] MEDS: INSULIN LISPRO 100 UNITS/ML SQ PRN ×2 (11:33→20:28)
[2019-09-05 11:45] LABS: GLUCOMETER DEV NAME(LOC) 6N.1; GLUCOSE,POINT OF CARE 169 MG/DL (70-110)
[2019-09-05 11:59] VITALS: BP 118/72
[2019-09-05 15:35] VITALS: BP 115/67
[2019-09-05 19:20] VITALS: BP 134/83
[2019-09-05] MEDS: INSULIN GLARGINE,HUM.REC.ANLOG 100 UNITS/ML SQ SCH (20:27)
[2019-09-06 04:14] VITALS: BP 121/75
[2019-09-06 06:05] LABS: BASOPHILS % (AUTO) 0.8 % (0.0-2.0); EOSINOPHILS % (AUTO) 0.3 % (1.0-6.0); HEMATOCRIT 29.2 % (41-53); HEMOGLOBIN 10.2 g/dL (13.5-17.5); LYMPHOCYTES # (AUTO) 1.1 K/uL (1.0-4.8); LYMPHOCYTES % (AUTO) 17.6 % (22.0-44.0); MEAN CORPUSCULAR HEMOGLOBIN 35.8 pg (26.0-34.0); MEAN CORPUSCULAR HGB CONC 34.8 G/dL (31.0-37.0); MEAN CORPUSCULAR VOLUME 103 fL (80-100); MONOCYTES % (AUTO) 14.7 % (2.0-9.0); NEUTROPHILS # (AUTO) 4.3 K/uL (1.8-7.7); NEUTROPHILS % (AUTO) 66.6 % (40.0-70.0); PLATELET COUNT (AUTO) 229 K/uL (150-450); RED BLOOD CELL COUNT(AUTO) 2.83 MIL/uL (4.50-5.90); RED CELL DISTRIBUTION WIDTH 17.1 % (11.5-14.5)
[2019-09-06 06:21] LABS: ANION GAP 6 mmol/L (8-16); CALCIUM, TOTAL 8.2 mg/dL (8.8-10.5); CARBON DIOXIDE 26 mmol/L (22-29); CHLORIDE 105 mmol/L (98-107); CREATININE 0.65 mg/dL (0.60-1.30); GLOMERULAR FILTR. RATE CALC > 60 mL/min (>60); GLUCOSE,RANDOM 55 mg/dL (70-110); PHOSPHORUS 2.9 mg/dL (2.5-4.9); POTASSIUM 4.3 mmol/L (3.5-5.1); SODIUM SERUM 137 mmol/L (136-145); UREA NITROGEN, BLOOD 8 mg/dL (7-18)
[2019-09-06 06:43] LABS: GLUCOMETER DEV NAME(LOC) 6N.1; GLUCOSE,POINT OF CARE 114 MG/DL (70-110)
[2019-09-06 06:43] LABS: GLUCOMETER DEV NAME(LOC) 6N.1; GLUCOSE,POINT OF CARE 155 MG/DL (70-110)
[2019-09-06 06:43] LABS: GLUCOMETER DEV NAME(LOC) 6N.1; GLUCOSE,POINT OF CARE 112 MG/DL (70-110)
[2019-09-06 06:43] LABS: GLUCOMETER DEV NAME(LOC) 6N.1; GLUCOSE,POINT OF CARE 63 MG/DL (70-110)
[2019-09-06 07:51] VITALS: BP 121/63
[2019-09-06] MEDS: PANTOPRAZOLE SODIUM 40 MG DR TABLET PO SCH (08:38)
[2019-09-06] MEDS: TICAGRELOR 90 MG TABLET PO SCH (08:38)
[2019-09-06] MEDS: FOLIC ACID 1 MG TABLET PO SCH (08:38)
[2019-09-06] MEDS: MULTIVITAMINS WITH MINERALS, THERAPEUTIC TABLET PO SCH (08:38)
[2019-09-06] MEDS: LISINOPRIL 5 MG TABLET PO SCH (08:38)
[2019-09-06] MEDS: MetFORMIN HCL 500 MG TABLET PO SCH (08:38)
[2019-09-06] MEDS: TAMSULOSIN HCL 0.4 MG CAPSULE PO SCH (08:38)
[2019-09-06] MEDS: THIAMINE HCL 100 MG TABLET PO SCH (08:38)
[2019-09-06] MEDS: AmLODIPine BESYLATE 5 MG TABLET PO SCH (08:38)
[2019-09-06] MEDS: BusPIRone HCL 10 MG TABLET PO SCH ×2 (08:38→15:36)
[2019-09-06] MEDS: ATORVASTATIN CALCIUM 40 MG TABLET PO SCH (08:38)
[2019-09-06] MEDS: METOPROLOL SUCCINATE 50 MG ER TABLET PO SCH (08:38)
[2019-09-06] MEDS: DOCUSATE SODIUM 100 MG CAPSULE PO SCH (08:39)
[2019-09-06] MEDS: POTASSIUM PHOS/SODIUM PHOS MIXTURE 1 POWDER PACKET PO SCH ×2 (08:41→15:36)
[2019-09-06 11:32] VITALS: BP 127/58
[2019-09-06] MEDS: INSULIN LISPRO 100 UNITS/ML SQ PRN (11:34)
[2019-09-06 13:53] LABS: GLUCOMETER DEV NAME(LOC) 6N.1; GLUCOSE,POINT OF CARE 144 MG/DL (70-110)
[2019-09-06] MEDS ORDERED: MULT-248 PO (14:40)
[2019-09-06] MEDS ORDERED: FOLI1 PO (14:40)
[2019-09-06] MEDS ORDERED: THIA100T67 PO (14:41)
== END 2019-09-06 16:10 | disposition home or self-care (01) | DRG 896 ==
LOC: EMS 21:21 → 6N 23:30
PROVIDERS: ADMIT Internal Medicine; ATTEND Internal Medicine
DX: F10.239 Alcohol dependence with withdrawal, unspecified (principal); E43 Unspecified severe protein-calorie malnutrition; I10 Essential (primary) hypertension; E78.5 Hyperlipidemia, unspecified; N40.0 Benign prostatic hyperplasia without lower urinary tract symptoms; I25.10 Atherosclerotic heart disease of native coronary artery without angina pectoris; E83.42 Hypomagnesemia; E11.9 Type 2 diabetes mellitus without complications; E78.00 Pure hypercholesterolemia, unspecified; E86.0 Dehydration; K21.9 Gastro-esophageal reflux disease without esophagitis; Z28.21 Immunization not carried out because of patient refusal; Z68.23 Body mass index [BMI] 23.0-23.9, adult; Z79.899 Other long term (current) drug therapy
CPT/HCPCS: 70450; 83605; 83735; 84100; 84439; 84443; 87086; 90686; 93005; 97161; 97165; 97535; G0480; J1815; J3411; J3475; J3490; J7030; J7060